=== PATIENT | female | born 1975 | race Caucasian/White ===

== ENCOUNTER → 2016-05-28 | Outpatient (CLI) | payer OTHER ==
[2016-05-28 15:05] LABS: ALBUMIN 4.3 g/dL (3.4-5.0); ANION GAP 14.4 MEQ/L (3-15); CALCULATED IONIZED CALCIUM 3.9 mg/dL (3.8-4.6); TOTAL PROTEIN 7.4 g/dL (6.4-8.5)
== END ==
LOC: LAB 14:33
PROVIDERS: ATTEND Urology
DX: N30.10 Interstitial cystitis (chronic) without hematuria (principal)
CPT/HCPCS: 36415; 80053; 82248